=== PATIENT | female | born 1950 | race Caucasian/White ===

== ENCOUNTER → 2016-08-26 | Day surgery (SDC) | payer OTHER ==
[2016-08-14 09:39] VITALS: Ht 170.2 cm; Wt 63.2 kg
[~2016-08-26] VITALS: Ht 170.2 cm; Wt 63.2 kg
[~2016-08-26] MED LIST: ACET-1311 PO; ATROPINE SULFATE 0.1 MG/ML 5ML SYR IV PRN; EpHEDrine SULFATE INJ 50 MG/ML AMP IV PRN; FENTANYL CITRATE INJ 50 MCG/1 ML 2 ML VIAL ONE; FEXO1TAB49 PO; HYDROXYCUT PO; LEVO25TA5 PO; LIDOCAINE HCL 2% 2 ML VIAL (20MG/ML) ONE; PRLSR20 PO; PROPOFOL IV EMULSION 10 MG/ML 20 ML VIAL IV ONE; PSEU30TA20 PO; SODIUM CHLORIDE 0.9% 500ML 500 ML IV ONE
[2016-08-26 10:22] VITALS: TEMP 36.6
--- NOTE | 2016-08-26 10:51 | Endo History and Physical ---
History & Physical Date of Service: Aug 26, 2016. Chief Complaint: dysphagia,esophageal stricture Referring Physician: Dr. Colleen Ross History of Present Illness 66 yo CF who presents for EGD secondary to dysphagia and esophageal stricture. Past Surgical History Hx Cardiac Surgery: No Hx Internal Defibrillator: No Hx Pacemaker: No Hx Abdominal Surgery: No Hx of Implantable Prosthesis: No Hx Post-Op Nausea and Vomiting: No Hx Cancer Surgery: No Hx Thoracic Surgery: No Hx Orthopedic: Yes (ORIF RIGHT WRIST, BORN WITH 4 FINGER ON EACH HAND AND HAD REPAIR) Hx Urinary Tract Surgery: No Family History None Social History Smoking Status: Never Smoker Hx Substance Use: No Hx Alcohol Use: Yes (OCAS) Allergies Coded Allergies: Amoxicillin (Verified Allergy, Mild, HIVES ALL OVER BODY, 08/14/16) Vitamin K (Verified Allergy, Mild, ARM SWELLED, 08/14/16) Sulfa Drugs (Verified Allergy, Unknown, THINKS SHE GET HIVES, 08/14/16) Current Medications Reported Home Medications Medications Dose Route/Sig Max Daily Dose Days Date Category [Hydroxycut] 1 Dose PO QAM 08/14/16 Reported Tylenol (Acetaminophen) 325 Mg Tab 650 Mg PO QID PRN 08/14/16 Reported Sudafed (Pseudoephedrine HCl) 30 Mg Tab 30 Mg PO BID 08/14/16 Reported Es Allergy (Fexofenadine Hcl) 180 Mg Tab 1 Tab PO QAM 08/14/16 Reported Levothyroxine Sodium 25 Mcg Tab 1 Tab PO QAM 08/14/16 Reported Vital Signs Weight (Kilograms): 63.18 Height (Feet): 5 Height (Inches): 7 Date Time Temp Pulse Resp B/P (MAP) Pulse Ox O2 Delivery O2 Flow Rate FiO2 08/26/16 10:22 36.6 62 18 159/76 99 Room Air Physical Exam General Appearance: WD/WN, no apparent distress Respiratory/Chest: Auscultation: breath sounds normal Cardiovascular: Heart Auscultation: RRR Abdomen: Bowel Sounds: normal Inspection & Palpation: soft, non-distended, no tenderness, guarding & rebound Assessment and Plan Assessment: 66 yo CF who presents for EGD secondary to dysphagia and esophageal stricture. Plan: Proceed with EGD.
--- NOTE | 2016-08-26 12:03 | Anesthesiology Progress Note ---
Anesthesia Post Op Note Date & Time Aug 26, 2016 at 12:02 Vital Signs Pain Intensity: 0 Vital Signs Past 12 Hours Date Time Temp Pulse Resp B/P (MAP) Pulse Ox O2 Delivery O2 Flow Rate FiO2 08/26/16 10:22 36.6 62 18 159/76 99 Room Air Notes Mental Status: alert / awake / arousable, participated in evaluation Pt Amnestic to Procedure: Yes Nausea / Vomiting: adequately controlled Pain: adequately controlled Airway Patency, RR, SpO2: stable & adequate BP & HR: stable & adequate Hydration State: stable & adequate Anesthetic Complications: no major complications apparent
--- NOTE | 2016-08-26 12:04 | Discharge Instructions ---
Endoscopy Patient Instructions Date / Procedure(s) Performed Aug 26, 2016. EGD Allergy Information Coded Allergies: Sulfa Antibiotics (Verified Allergy, Intermediate, THINKS SHE GET HIVES, ) Amoxicillin (Verified Allergy, Mild, HIVES ALL OVER BODY, 08/14/16) Vitamin K (Verified Allergy, Mild, ARM SWELLED, 08/14/16) Discharge Date / Findings Aug 26, 2016. Schatzki's Ring s/p dilation to 15mm Hiatal hernia Gastritis s/p biopsies Duodenitis Medication Instructions Stopped Medication(s): stopped Sudafed and Es week ago 1) Start Omeprazole 20mg by mouth each morning 1/2 hour prior to breakfast. 2) Resume all other medications today as prescribed Medications Dose Route/Sig Max Daily Dose Days Date Category [Hydroxycut] 1 Dose PO QAM 08/14/16 Reported Tylenol (Acetaminophen) 325 Mg Tab 650 Mg PO QID PRN 08/14/16 Reported Sudafed (Pseudoephedrine HCl) 30 Mg Tab 30 Mg PO BID 08/14/16 Reported Es Allergy (Fexofenadine Hcl) 180 Mg Tab 1 Tab PO QAM 08/14/16 Reported Levothyroxine Sodium 25 Mcg Tab 1 Tab PO QAM 08/14/16 Reported Provider Instructions Activity Restrictions - No exercising or heavy lifting for 24 hours. - Do not drink alcohol the day of the procedure. - Do not drive a car or operate machinery until the day after the procedure. - Do not make any important decisions or sign important papers in 24 hours after the procedure. Following Day: - Return to full activity which may include returning to work/school. Diet Start your diet with liquids and light foods (jello, soup, juice, toast). Then eat your usual diet if not nauseated. Treatment For Common After Affects For mild abdominal pain, bloating, or excessive gas: - Rest - Eat lightly - Lie on right side Follow-Up Information Follow-up with Dr. Colleen Ross as scheduled Anesthesia Information What You Should Know You have had a procedure that required some medicine to reduce anxiety and discomfort. This treatment is called moderate sedation. After receiving the treatment, you may be sleepy, but you will be able to breathe on your own. The effects of the treatment may last for several hours. Follow these instructions along with Activity/Diet recommendations noted above: * Do NOT do anything where dizziness or clumsiness would be dangerous. * Rest quietly at home today, then you can be up and about tomorrow. * Have a responsible person stay with you the rest of today. * You may have had an I.V. today. If so, you may take the dressing off later today. Recommendations Call your doctor if: * Trouble breathing * Continuous vomiting for more than 24 hours * Temperature above 101 degrees * Severe abdominal pain or bloating * Pain not relieved by pain medicine ordered * There is increased drainage or redness from any incision * A large amount of rectal bleeding greater than 2-3 tablespoons. (If you had a polyp/s removed or have hemorrhoids, a small amount of blood - from the rectum is to be expected.) * You have any unanswered questions or concerns. IN THE EVENT OF A SERIOUS EMERGENCY, GO TO THE NEAREST EMERGENCY ROOM Your discharge instructions were prepared by provider Nelson Solis. Patient Instructions Signature Page Paige Loomis Patient (or Guardian) Signature/Date: I have read and understand the instructions given to me by my caregivers. Caregiver/RN/Doctor Signature/Date: The above-named patient and/or guardian has received patient instructions on this date. + Original Patient Signature Page (only) stays with chart. Please make copy for patient.
--- NOTE | 2016-08-26 12:11 | GI REPORT ---
Procedure Date: 08/26/2016 11:38 AM Procedure: Upper GI endoscopy Indications: Dysphagia Medicines: Monitored Anesthesia Care Complications: No immediate complications. Estimated Blood Loss: Estimated blood loss: none. Procedure: Pre-Anesthesia Assessment: - Prior to the procedure, a History and Physical was performed, and patient medications and allergies were reviewed. The patient's tolerance of previous anesthesia was also reviewed. The risks and benefits of the procedure and the sedation options and risks were discussed with the patient. All questions were answered, and informed consent was obtained. Prior Anticoagulants: The patient has taken no previous anticoagulant or antiplatelet agents. ASA Grade Assessment: II - A patient with mild systemic disease. After reviewing the risks and benefits, the patient was deemed in satisfactory condition to undergo the procedure. After obtaining informed consent, the endoscope was passed under direct vision. Throughout the procedure, the patient's blood pressure, pulse, and oxygen saturations were monitored continuously. The scope was introduced through the mouth, and advanced to the second part of duodenum. The upper GI endoscopy was accomplished without difficulty. The patient tolerated the procedure well. Findings: A moderate Schatzki ring (acquired) was found at the gastroesophageal junction. A TTS dilator was passed through the scope. Dilation with a 12-13.5-15 mm balloon (to a maximum balloon size of 15 mm) dilator was performed. The dilation site was examined and showed moderate improvement in luminal narrowing. A small hiatus hernia was present. Localized mild inflammation characterized by erythema was found in the gastric antrum. Biopsies were taken with a cold forceps for histology. Localized mild inflammation characterized by congestion (edema) and erythema was found in the first part of the duodenum. Impression: - Moderate Schatzki ring. Dilated. - Small hiatus hernia. - Gastritis. Biopsied. - Duodenitis. Recommendation: - Resume previous diet. - Continue present medications. - Await pathology results. - Use Prilosec (omeprazole) 20 mg PO daily. - Repeat the upper endoscopy in 3 weeks for retreatment. Nelson Solis, 08/26/2016 12:11:18 PM This report has been signed electronically. Note Initiated On: 08/26/2016 11:38 AM I attest to the content of the Intraoperative Record and orders documented therein, exceptions below
[2016-08-26 12:26] VITALS: BP 140/74; PULSE 56; O2SAT 98
== END | disposition home or self-care (01) ==
LOC: C.GI 10:01
PROVIDERS: ATTEND Internal Medicine
DX: K22.2 Esophageal obstruction (principal); K29.70 Gastritis, unspecified, without bleeding; R13.10 Dysphagia, unspecified; K29.80 Duodenitis without bleeding; K44.9 Diaphragmatic hernia without obstruction or gangrene; E03.9 Hypothyroidism, unspecified

== ENCOUNTER → 2016-09-05 | Outpatient (CLI) | payer OTHER ==
[~2016-09-05] MED LIST changes: -ATROPINE SULFATE 0.1 MG/ML 5ML SYR IV PRN; -EpHEDrine SULFATE INJ 50 MG/ML AMP IV PRN; -FENTANYL CITRATE INJ 50 MCG/1 ML 2 ML VIAL ONE; -LIDOCAINE HCL 2% 2 ML VIAL (20MG/ML) ONE; -PROPOFOL IV EMULSION 10 MG/ML 20 ML VIAL IV ONE; -SODIUM CHLORIDE 0.9% 500ML 500 ML IV ONE
--- NOTE | 2016-09-06 13:26 | MAMMOGRAPHY REPORT ---
BILATERAL DIGITAL SCREENING MAMMOGRAM TOMOSYNTHESIS WITH CAD: 09/05/2016 CLINICAL HISTORY: Routine screening. Patient has no complaints. TECHNIQUE: Breast tomosynthesis in addition to standard 2D mammography was performed. Current study was also evaluated with a Computer Aided Detection (CAD) system. COMPARISON: Comparison is made to exams dated: 06/24/2013 mammogram, 06/12/2012 mammogram, 05/28/2011 nannette mogram, 04/10/2010 mammogram - [facility], 11/06/2006, and 09/07/2004 mammogram - [facility]. BREAST COMPOSITION: The tissue of both breasts is heterogeneously dense, which may obscure small mas ses. FINDINGS: There are groups of calcifications within the left upper outer quadrant, which may be incr eased compared to prior exams. Recommend spot magnification views for further evaluation. The remainder of both breasts are stable compared to prior exams, without suspicious masses, calcific ations, or areas of architectural distortion noted. Other scattered bilateral benign-appearing calci fications are not significantly changed. IMPRESSION: ACR BI-RADS CATEGORY 0: INCOMPLETE EVALUATION: NEED ADDITIONAL IMAGING EVALUATION Left upper outer quadrant calcifications, for which additional imaging evaluation is recommended. Th e patient will be called to schedule an appointment. Approximately 10% of breast cancers are not detected with mammography. A negative mammographic report should not delay biopsy if a clinically suggestive mass is present. Zuleika Moore M.D. /:09/06/2016 07:35:17 Director Of Creative Services: Kayla MORALES(Uziel)(Laurie)(LUANA), [facility] letter sent: Addl Imaging 0 BI-RADS Code: ACR BI-RADS Category 0: Incomplete Evaluation: Need Additional Imaging Evaluation
== END | disposition home or self-care (01) ==
LOC: C.MAMM 14:37
PROVIDERS: ATTEND Family Medicine
DX: Z12.31 Encounter for screening mammogram for malignant neoplasm of breast (principal); R92.1 Mammographic calcification found on diagnostic imaging of breast

== ENCOUNTER → 2016-09-16 | Outpatient (CLI) | payer OTHER ==
--- NOTE | 2016-09-16 13:15 | MAMMOGRAPHY REPORT ---
UNILATERAL LEFT DIGITAL DIAGNOSTIC MAMMOGRAM: 09/16/2016 CLINICAL HISTORY: 66-year-old woman called back from screening mammography for possible clusters of m icrocalcifications in the left upper outer quadrant. TECHNIQUE: Spot magnification left CC and ML views were obtained. COMPARISON: Comparison is made to exams dated: 09/05/2016 mammogram, 06/24/2013 mammogram, 06/12/2012 ma mmogram, 05/28/2011 mammogram, 04/30/2010 aspiration, and 04/10/2010 mammogram - [facility]. BREAST COMPOSITION: The tissue of the left breast is heterogeneously dense, which may obscure small masses. FINDINGS: Spot magnification views were obtained of the left upper outer middle and posterior breast . There are approximately 5 clusters/groupings of microcalcifications in the visualized upper outer quadrant, that are increasingly conspicuous comparing to prior available mammograms, particularly the most recent 2013 mammogram. The largest cluster measuring 5 mm is predominantly amorphous in morpho logy with 2 larger calcifications that may possibly demonstrate layering on the spot magnification ML view. The second largest cluster morphology are punctate and amorphous but in a linear distribution extending over 10 mm. Both of these clusters of calcifications are indeterminate, warranting defini tive characterization with tissue sampling. There are 3 other smaller clusters in groupings of micro calcifications seen in the upper outer quadrant denoted by arrows. Pending pathology results, these can be followed in short intervals pathology is benign as all of these calcifications may possibly re present benign fibrocystic changes. IMPRESSION: ACR BI-RADS CATEGORY 4B: INTERMEDIATE SUSPICION FOR MALIGNANCY There are 5 clusters/groupings of microcalcifications in the left upper outer quadrant that are new c ompared to prior mammograms and are indeterminate. Recommend stereotactic guided biopsy of the large st cluster of amorphous microcalcifications measuring 5 mm, and also of the cluster extending in a li near distribution. If pathology results are benign, the other smaller clusters/groupings can be foll owed in short intervals to ensure stability. These results and recommendations were discussed with the patient at the time of the exam. She tenta tively scheduled the biopsies prior to leaving our department. Approximately 10% of breast cancers are not detected with mammography. A negative mammographic report should not delay biopsy if a clinically suggestive mass is present. Nicolette Reinoso M.D. ay/:09/16/2016 12:11:09 Packaging Inspector: Ines MORALES(R)(M), [facility] letter sent: Abnormal / BI-RADS Code: ACR BI-RADS Category 4B: Intermediate Suspicion For Malignancy
== END | disposition home or self-care (01) ==
LOC: C.MAMM 09:44
PROVIDERS: ATTEND Family Medicine
DX: R92.0 Mammographic microcalcification found on diagnostic imaging of breast (principal)

== ENCOUNTER → 2016-09-18 | Day surgery (SDC) | payer OTHER ==
[2016-08-29 10:53] VITALS: BMI 21.0
[~2016-09-18] VITALS: Ht 170.2 cm; Wt 63.2 kg
[~2016-09-18] MED LIST changes: +LIDOCAINE HCL 2% 2 ML VIAL (20MG/ML) ONE; +PROPOFOL IV EMULSION 10 MG/ML 20 ML VIAL IV ONE; +SODIUM CHLORIDE 0.9% 500ML 500 ML IV ONE
[2016-09-18 14:27] VITALS: Ht 170.2 cm; Wt 63.2 kg
--- NOTE | 2016-09-18 15:17 | Endo History and Physical ---
History & Physical Date of Service: Sep 18, 2016. Chief Complaint: SCHATZKI RING Referring Physician: DR. COLEMAN History of Present Illness 66 yo CF who presents for EGD secondary to dysphagia with history of Schatzki's Ring. Past Surgical History Hx Cardiac Surgery: No Hx Internal Defibrillator: No Hx Pacemaker: No Hx Abdominal Surgery: No Hx of Implantable Prosthesis: No Hx Post-Op Nausea and Vomiting: No Hx Cancer Surgery: No Hx Thoracic Surgery: No Hx Orthopedic: Yes (ORIF RIGHT WRIST, BORN WITH 4 FINGER ON EACH HAND AND HAD REPAIR) Hx Urinary Tract Surgery: No Family History None Social History Smoking Status: Never Smoker Hx Substance Use: No Hx Alcohol Use: Yes (OCAS) Allergies Coded Allergies: Sulfa Antibiotics (Verified Allergy, Intermediate, THINKS SHE GET HIVES, ) Amoxicillin (Verified Allergy, Mild, HIVES ALL OVER BODY, 09/18/16) Vitamin K (Verified Allergy, Mild, ARM SWELLED, 09/18/16) Current Medications Reported Home Medications Medications Dose Route/Sig Max Daily Dose Days Date Category Prilosec (Omeprazole) 20 Mg Capcr 20 Mg PO DAILY 09/18/16 Reported [Hydroxycut] 1 Dose PO QAM 08/14/16 Reported Tylenol (Acetaminophen) 325 Mg Tab 650 Mg PO QID PRN 08/14/16 Reported Sudafed (Pseudoephedrine HCl) 30 Mg Tab 30 Mg PO BID 08/14/16 Reported Es Allergy (Fexofenadine Hcl) 180 Mg Tab 1 Tab PO QAM 08/14/16 Reported Levothyroxine Sodium 25 Mcg Tab 1 Tab PO QAM 08/14/16 Reported Vital Signs Weight (Kilograms): 63.18 Height (Feet): 5 Height (Inches): 7 Date Time Temp Pulse Resp B/P (MAP) Pulse Ox O2 Delivery O2 Flow Rate FiO2 09/18/16 14:35 36.4 61 20 141/71 (94) 98 Room Air Physical Exam General Appearance: WD/WN, no apparent distress Respiratory/Chest: Auscultation: breath sounds normal Cardiovascular: Heart Auscultation: RRR Abdomen: Bowel Sounds: normal Inspection & Palpation: soft, non-distended, no tenderness, guarding & rebound Assessment and Plan Assessment: 66 yo CF who presents for EGD secondary to dysphagia with history of Schatzki's Ring. Plan: Proceed with EGD.
--- NOTE | 2016-09-18 15:41 | Discharge Instructions ---
Endoscopy Patient Instructions Date / Procedure(s) Performed Sep 18, 2016. EGD Allergy Information Coded Allergies: Sulfa Antibiotics (Verified Allergy, Intermediate, THINKS SHE GET HIVES, ) Amoxicillin (Verified Allergy, Mild, HIVES ALL OVER BODY, 09/18/16) Vitamin K (Verified Allergy, Mild, ARM SWELLED, 09/18/16) Discharge Date / Findings Sep 18, 2016. Hiatal hernia Schatzki's Ring s/p dilation to 18 mm Medication Instructions OK to resume all medications today as prescribed Reported Home Medications Medications Dose Route/Sig Max Daily Dose Days Date Category Prilosec (Omeprazole) 20 Mg Capcr 20 Mg PO DAILY 09/18/16 Reported [Hydroxycut] 1 Dose PO QAM 08/14/16 Reported Tylenol (Acetaminophen) 325 Mg Tab 650 Mg PO QID PRN 08/14/16 Reported Sudafed (Pseudoephedrine HCl) 30 Mg Tab 30 Mg PO BID 08/14/16 Reported Es Allergy (Fexofenadine Hcl) 180 Mg Tab 1 Tab PO QAM 08/14/16 Reported Levothyroxine Sodium 25 Mcg Tab 1 Tab PO QAM 08/14/16 Reported Provider Instructions Activity Restrictions - No exercising or heavy lifting for 24 hours. - Do not drink alcohol the day of the procedure. - Do not drive a car or operate machinery until the day after the procedure. - Do not make any important decisions or sign important papers in 24 hours after the procedure. Following Day: - Return to full activity which may include returning to work/school. Diet Start your diet with liquids and light foods (jello, soup, juice, toast). Then eat your usual diet if not nauseated. Treatment For Common After Affects For mild abdominal pain, bloating, or excessive gas: - Rest - Eat lightly - Lie on right side Follow-Up Information Follow-up with DR. COLEMAN as scheduled Anesthesia Information What You Should Know You have had a procedure that required some medicine to reduce anxiety and discomfort. This treatment is called moderate sedation. After receiving the treatment, you may be sleepy, but you will be able to breathe on your own. The effects of the treatment may last for several hours. Follow these instructions along with Activity/Diet recommendations noted above: * Do NOT do anything where dizziness or clumsiness would be dangerous. * Rest quietly at home today, then you can be up and about tomorrow. * Have a responsible person stay with you the rest of today. * You may have had an I.V. today. If so, you may take the dressing off later today. Recommendations Call your doctor if: * Trouble breathing * Continuous vomiting for more than 24 hours * Temperature above 101 degrees * Severe abdominal pain or bloating * Pain not relieved by pain medicine ordered * There is increased drainage or redness from any incision * A large amount of rectal bleeding greater than 2-3 tablespoons. (If you had a polyp/s removed or have hemorrhoids, a small amount of blood - from the rectum is to be expected.) * You have any unanswered questions or concerns. IN THE EVENT OF A SERIOUS EMERGENCY, GO TO THE NEAREST EMERGENCY ROOM Your discharge instructions were prepared by provider Nelson Solis. Patient Instructions Signature Page Paige Loomis Patient (or Guardian) Signature/Date: I have read and understand the instructions given to me by my caregivers. Caregiver/RN/Doctor Signature/Date: The above-named patient and/or guardian has received patient instructions on this date. + Original Patient Signature Page (only) stays with chart. Please make copy for patient.
--- NOTE | 2016-09-18 15:52 | GI REPORT ---
Procedure Date: 09/18/2016 3:20 PM Procedure: Upper GI endoscopy Indications: Dysphagia Medicines: Monitored Anesthesia Care Complications: No immediate complications. Estimated Blood Loss: Estimated blood loss: none. Procedure: Pre-Anesthesia Assessment: - Prior to the procedure, a History and Physical was performed, and patient medications and allergies were reviewed. The patient's tolerance of previous anesthesia was also reviewed. The risks and benefits of the procedure and the sedation options and risks were discussed with the patient. All questions were answered, and informed consent was obtained. Prior Anticoagulants: The patient has taken no previous anticoagulant or antiplatelet agents. ASA Grade Assessment: II - A patient with mild systemic disease. After reviewing the risks and benefits, the patient was deemed in satisfactory condition to undergo the procedure. After obtaining informed consent, the endoscope was passed under direct vision. Throughout the procedure, the patient's blood pressure, pulse, and oxygen saturations were monitored continuously. The Scope was introduced through the mouth, and advanced to the second part of duodenum. The upper GI endoscopy was accomplished without difficulty. The patient tolerated the procedure well. Findings: A moderate Schatzki ring (acquired) was found at the gastroesophageal junction. A TTS dilator was passed through the scope. Dilation with a 15-16.5-18 mm balloon (to a maximum balloon size of 18 mm) dilator was performed. The dilation site was examined and showed moderate improvement in luminal narrowing. A small hiatus hernia was present. The examined duodenum was normal. Impression: - Moderate Schatzki ring. Dilated. - Small hiatus hernia. - Normal examined duodenum. - No specimens collected. Recommendation: - Resume previous diet. - Continue present medications. - Repeat the upper endoscopy PRN for retreatment. - Return to primary care physician as previously scheduled. Nelson Solis DO 09/18/2016 3:51:17 PM This report has been signed electronically. Note Initiated On: 09/18/2016 3:20 PM I attest to the content of the Intraoperative Record and orders documented therein, exceptions below
--- NOTE | 2016-09-18 16:01 | Anesthesiology Progress Note ---
Anesthesia Post Op Note Date & Time Sep 18, 2016 at 16:01 Vital Signs Pain Intensity: 0 Vital Signs Past 12 Hours Date Time Temp Pulse Resp B/P (MAP) Pulse Ox O2 Delivery O2 Flow Rate FiO2 09/18/16 15:43 67 16 127/83 (98) 96 Room Air 09/18/16 14:35 36.4 61 20 141/71 (94) 98 Room Air Notes Mental Status: alert / awake / arousable, participated in evaluation Pt Amnestic to Procedure: Yes Nausea / Vomiting: adequately controlled Pain: adequately controlled Airway Patency, RR, SpO2: stable & adequate BP & HR: stable & adequate Hydration State: stable & adequate Anesthetic Complications: no major complications apparent
[2016-09-18 16:13] VITALS: BP 143/82; PULSE 60; O2SAT 100
== END | disposition home or self-care (01) ==
LOC: C.GI 14:01
PROVIDERS: ATTEND Internal Medicine
DX: R13.10 Dysphagia, unspecified (principal); K22.2 Esophageal obstruction; K44.9 Diaphragmatic hernia without obstruction or gangrene; M19.90 Unspecified osteoarthritis, unspecified site; Z88.1 Allergy status to other antibiotic agents; Z88.2 Allergy status to sulfonamides; Z98.890 Other specified postprocedural states; Z68.21 Body mass index [BMI] 21.0-21.9, adult

== ENCOUNTER → 2016-10-02 | Outpatient (CLI) | payer OTHER ==
[~2016-10-02] MED LIST changes: -LIDOCAINE HCL 2% 2 ML VIAL (20MG/ML) ONE; -PROPOFOL IV EMULSION 10 MG/ML 20 ML VIAL IV ONE; -SODIUM CHLORIDE 0.9% 500ML 500 ML IV ONE
--- NOTE | 2016-10-02 13:45 | Discharge Instructions ---
Discharge Instructions Procedure Procedure Date: Oct 02, 2016. Reason for visit: Lt Calcs X's 2. Discharge Discharge Date: Oct 02, 2016. Discharge Diagnosis: status post breast biopsies Instructions Activity Recommendations: Additional Limitations (see below) Return to School/Work: no limitations Recommended Home Diet: No Limitations Provider Instructions: ACTIVITY RECOMMENDATIONS: * No lifting, pushing, pulling or exercising the affected side for three days. RETURN TO SCHOOL/WORK: * You may return to work/school after the procedure, but do not perform any strenuous activities for 24 to 48 hours. MEDICATIONS: * Tylenol (two 325 mg) every four to six hours if needed for mild pain (if not allergic to Tylenol). DIET: * Resume previous diet. SPECIAL CARE INSTRUCTIONS: * Keep biopsy site dry for 24 hours. May shower after 24 hours, but do not soak (bathe) incision. * May remove Tegaderm (plastic patch) tomorrow AFTER showering. * Leave the steri-strips on for one week. Allow the steri-strips to fall off by themselves. If not off after one week, you may remove them. You may place a Bandaid crosswise over the strips, if desired. * Apply ice 10 minutes on and 10 minutes off as needed. * Wear a bra at bedtime to sleep more comfortably for 2-3 days. * Your referring physician should have the results after approximately 5 to 7 business days. * Call for unusual bleeding, fever, drainage, etc or if you have any questions call during normal business hours or after hours call Dr Moore, [phone]. FOLLOW UP VISIT: Follow-up with Referring Physician as scheduled. Allergies Coded Allergies: Sulfa Antibiotics (Verified Allergy, Intermediate, THINKS SHE GET HIVES, ) Amoxicillin (Verified Allergy, Mild, HIVES ALL OVER BODY, 09/18/16) Vitamin K (Verified Allergy, Mild, ARM SWELLED, 09/18/16) Connor Wood Recommendations: Call your doctor if: * Temperature above 101 degrees * Pain not relieved by pain medicine ordered * There is increased drainage or redness from any incision * You have any unanswered questions or concerns. Your Doctors Instructions noted above were prepared by provider Zuleika Moore. Patient Signature Section: Patient Instructions Signature Page Paige Loomis Patient (or Guardian) Signature/Date: I have read and understand the instructions given to me by my caregivers. Caregiver/RN/Doctor Signature/Date: The above-named patient and/or guardian has received patient instructions on this date. + Original Patient Signature Page (only) stays with chart. Please make copy for patient.
--- NOTE | 2016-10-02 15:36 | MAMMOGRAPHY REPORT ---
STEREOTACTIC GUIDED BIOPSY LEFT BREAST: 10/02/2016 CLINICAL HISTORY: Left upper outer quadrant calcifications. PATIENT CONSENT: The procedure, risks, benefits, and alternatives of stereotactic biopsy with clip pl acement were discussed with the patient, and verbal and written consent was obtained. A timeout was performed immediately prior to the procedure. PROCEDURE DESCRIPTION: With stereotactic guidance, aseptic technique, and lidocaine as a local anesth etic (1% lidocaine to anesthetize the skin and 1% lidocaine with epinephrine to anesthetize the deepe r tissues), the calcifications of concern in the left upper outer quadrant posteriorly (labeled "A") were sampled multiple times with a 9-gauge vacuum-assisted biopsy needle ([employer]). The path of approach was lateral. The specimen radiograph demonstrates calcifications to be present in the sampl es. A metallic marker clip (dumbbell-shaped) was placed at the biopsy site. This was confirmed on p ostprocedure mammograms. Direct pressure was applied at the biopsy site and hemostasis was readily a chieved. She was given wound care instructions. After the procedure was finished and the patient was about to leave, she reported mild pressure under neath her right breast and lower sternal region, which she attributes to the way she was positioned p rita during the stereotactic biopsy. She denied any heart palpitations, difficulty breathing, or oth er symptoms. When asked if she would like to stay at the breast center so we could monitor her for a little while after the procedure, she reported that she was feeling fine enough to leave and that e would call the breast center or 911 if she had any chest pain, difficulty breathing, or other mookie rning symptoms. COMPARISON: Comparison is made to exams dated: 09/16/2016 mammogram, 09/05/2016 mammogram, 06/24/2013 ma mmogram, 06/12/2012 mammogram, 05/28/2011 mammogram, and 04/10/2010 mammogram - [facility]. IMPRESSION: STEREOTACTIC GUIDED BIOPSY 1. Stereotactic biopsy of indeterminate calcifications in the left upper outer quadrant (posterior cl uster, labeled "A"), with clip placement. The patient will receive pathology results from her referr ing provider. Pending benign pathology results, recommend follow-up diagnostic mammograms of the lef t breast in 6 months. 2. The patient reported mild pressure underneath her right breast and sternal region after the proce dure, as described above, which she believes is due to the way she was positioned during the biopsy p dillon. She was advised to call the breast center or 911 if she had any chest pain, palpitations, difficulty breathing, or other complaints. Zuleika Moore M.D. ah/:10/02/2016 14:22:34 Attending Technologist: Nimco Dunaway RT(R)(M), [facility] Mobile Application Engineer: Paige Reyes RT(R)(M), [facility]
--- NOTE | 2016-10-02 15:37 | MAMMOGRAPHY REPORT ---
THIS REPORT HAS BEEN AMENDED. STEREOTACTIC GUIDED BIOPSY LEFT BREAST: 10/02/2016 CLINICAL HISTORY: Indeterminate calcifications in the left upper outer quadrant. PATIENT CONSENT: The procedure, risks, benefits, and alternatives of stereotactic biopsy with clip pl acement were discussed with the patient, and verbal and written consent was obtained. A timeout was performed immediately prior to the procedure. PROCEDURE DESCRIPTION: With stereotactic guidance, aseptic technique, and lidocaine as a local anesth etic (1% lidocaine to anesthetize the skin and 1% lidocaine with epinephrine to anesthetize the deepe r tissues), the calcifications of concern in the left upper outer quadrant (anterior cluster, labeled "B") were sampled multiple times with a 9-gauge vacuum-assisted biopsy needle ([employer]). The pa th of approach was lateral. The specimen radiograph demonstrates calcifications to be present in the samples. A metallic marker clip was placed at the biopsy site. This was confirmed on postprocedure mammograms. Direct pressure was applied at the biopsy site and hemostasis was readily achieved. Th e patient tolerated the procedure without complication. She was given wound care instructions. COMPARISON: Comparison is made to exams dated: 10/02/2016 stereotactic biopsy, 09/16/2016 mammogram, mammogram, 06/24/2013 mammogram, and 06/12/2012 mammogram - [facility]. IMPRESSION: STEREOTACTIC GUIDED BIOPSY Stereotactic biopsy of indeterminate calcifications in the left upper outer quadrant (anterior cluste r, labeled "B"), with clip placement. The patient will receive pathology results from her referring provider. Pending benign pathology results, recommend follow-up diagnostic mammograms of the left br east to reevaluate other similar-appearing clusters of calcifications. Zuleika Moore M.D. ah/:10/02/2016 13:48:49 Attending Technologist: Nimco Dunaway RT(R)(M), [facility] Press Operator Printing: Paige Reyes RT(R)(M), [facility] AMENDMENT: 10/17/2016 Zuleika Moore M.D. Pathology results from left breast stereotactic biopsy 2 were reviewed on 10/17/2016. The pathology of the more posterior cluster ("A") yielded fibrocystic change with microcalcifications. The patholo gy of the more anterior cluster ("B") yielded fibrocystic change, microcalcifications, and focal usua l ductal hyperplasia. The pathology is benign and concordant with the imaging findings. Recommend fo llow-up diagnostic mammograms of the left breast in 6 months to reevaluate other similar-appearing cl usters of calcifications.
--- NOTE | 2016-10-02 15:38 | MAMMOGRAPHY REPORT ---
UNILATERAL LEFT DIGITAL DIAGNOSTIC MAMMOGRAM: 10/02/2016 CLINICAL HISTORY: Status post left breast stereotactic biopsy 2. TECHNIQUE: Left CC and LM views were obtained. COMPARISON: Comparison is made to exams dated: 10/02/2016 stereotactic biopsy, 09/16/2016 mammogram, mammogram, 06/24/2013 mammogram, 06/12/2012 mammogram, and 05/28/2011 mammogram - [facility]. BREAST COMPOSITION: The tissue of the left breast is heterogeneously dense, which may obscure small masses. FINDINGS: A preprocedural left LM view was obtained for biopsy planning purposes. Postprocedural le ft CC and LM views were also obtained. A new dumbbell-shaped biopsy marker clip is seen within the l eft breast status post stereotactic biopsy of the left upper outer quadrant cluster of calcifications (labeled "A", more posterior cluster). The biopsy marker clip is in the correct position on the LM view, however, it appears to be medially migrated from the biopsy site by approximately 8.7 cm likely due to accordion effect. Another biopsy marker clip is seen in the left breast status post stereota ctic biopsy of the more anterior left upper outer quadrant cluster (labeled "B"); no significant migr ation of this clip is seen. No postbiopsy hematoma is evident. IMPRESSION: POST PROCEDURE IMAGING FOR MARKER PLACEMENT New biopsy marker clips status post left breast stereotactic biopsy 2, with clip migration as descri bed above. Pathology results are pending. Approximately 10% of breast cancers are not detected with mammography. A negative mammographic report should not delay biopsy if a clinically suggestive mass is present. Zuleika Moore M.D. /:10/02/2016 14:10:34 Attending Technologist: Nimco Dunaway RT(R)(M), [facility] Dental Surgery Doctor: Paige Reyes RT(R)(M), [facility] BI-RADS Code: Post Procedure Imaging For Marker Placement
== END | disposition home or self-care (01) ==
LOC: C.MAMM 12:17
PROVIDERS: ATTEND Family Medicine
DX: R92.0 Mammographic microcalcification found on diagnostic imaging of breast (principal)